=== PATIENT | female | born 1960 | race Caucasian/White ===

== ENCOUNTER → 2023-11-08 13:38 | Outpatient (REF) | payer MEDICARE, SELFPAY | LOC: HWEVLT 13:38 | PROVIDERS: ATTENDING PHYSICIAN Radiology Vascular & Interventional Radiology | DX: I83.893 Varicose veins of bilateral lower extremities with other complications (principal) | CPT/HCPCS: 93970 ==

== ENCOUNTER → 2024-01-23 07:33 | Outpatient (REF) | payer OTHER, MEDICARE, SELFPAY ==
[2024-01-25 15:35] LABS: Mumps Virus IgG Positive
[2024-01-26 10:35] LABS: Quantiferon Mitogen minus NIL 7.75 IU/mL; Quantiferon NIL 0.03 IU/mL; Quantiferon Plus TB1 minus NIL 0.05 IU/mL (0.00-0.34); Quantiferon Plus TB2 minus NIL 0.03 IU/mL (0.00-0.34); Quantiferon TB Gold Plus Negative (Negative)
== END ==
LOC: REG 07:33
PROVIDERS: ATTENDING PHYSICIAN Nurse Practitioner Family
DX: Z23 Encounter for immunization (principal)
CPT/HCPCS: 36415; 86480; 86735

== ENCOUNTER → 2024-01-24 09:54 | Outpatient (REF) | payer OTHER, MEDICARE, SELFPAY | LOC: HWRCS 09:54 | PROVIDERS: ATTENDING PHYSICIAN Physician Assistant | DX: I10 Essential (primary) hypertension (principal) | CPT/HCPCS: 93306 ==

== ENCOUNTER → 2024-03-05 11:26 | Outpatient (REF) | payer MEDICARE, SELFPAY ==
[2024-03-05 13:53] LABS: Blood Urea Nitrogen 11 mg/dl (7-17); Calcium 9.7 mg/dl (8.4-10.2); Carbon Dioxide 26 mmol/L (22-30); Chloride 101 mmol/L (98-107); Glucose 96 mg/dl (70-99); HDL Cholesterol 104 mg/dl; LDL Cholesterol, Calculated 79 mg/dl; Potassium 4.6 mmol/L (3.5-5.1); Sodium 136 mmol/L (135-145); Total Cholesterol 196 mg/dl (50-199); Triglyceride 66 mg/dl (10-149); Very Low Density Lipoprotein 13 mg/dl (0-30); eGFR > 60.00
== END ==
LOC: REG 11:26
PROVIDERS: ATTENDING PHYSICIAN Internal Medicine Cardiovascular Disease; FAMILY PHYSICIAN Student in an Organized Health Care Education/Training Program
DX: E66.09 Other obesity due to excess calories (principal); I10 Essential (primary) hypertension; Z68.34 Body mass index [BMI] 34.0-34.9, adult; Z01.89 Encounter for other specified special examinations
CPT/HCPCS: 36415; 80048; 80061

== ENCOUNTER → 2024-05-02 08:04 | Outpatient (REF) | payer MEDICARE, SELFPAY | LOC: HWEVLT 08:04 | PROVIDERS: ATTENDING PHYSICIAN Radiology Vascular & Interventional Radiology | DX: I83.892 Varicose veins of left lower extremity with other complications (principal) | CPT/HCPCS: 36478 ==

== ENCOUNTER → 2024-05-28 10:53 | Outpatient (REF) | payer MEDICARE, SELFPAY | LOC: HWEVLT 10:53 | PROVIDERS: ATTENDING PHYSICIAN Radiology Vascular & Interventional Radiology | DX: I83.892 Varicose veins of left lower extremity with other complications (principal) | CPT/HCPCS: 93971 ==